=== PATIENT | female | born 1995 | race Caucasian/White ===

== ENCOUNTER 2018-10-12 12:20 | Emergency (ER) | payer OTHER, MEDICAID ==
[~2018-10-12] VITALS: Ht 154.9 cm; Wt 62.1 kg
[~2018-10-12 12:20] MED LIST: FOLIC ACID0.8 MG PO; HYDROCODONE-AP1 EAC6 PO; NAPROSYN500 MG PO; PRENATAL MULTI1 EAC3
[2018-10-12] MEDS ORDERED: HYDROXYZINE HCL25 M2 PO (12:31)
[2018-10-12] MEDS ORDERED: ZOFRAN ODT4 MG DISSOLVE (14:23)
[2018-10-12 14:39] VITALS: BP 133/78
== END 2018-10-12 14:39 | disposition home or self-care (01) ==
LOC: M.ERS 12:20
DX: R11.2 Nausea with vomiting, unspecified (principal); Z91.040 Latex allergy status; Z88.0 Allergy status to penicillin

== ENCOUNTER 2019-01-12 20:12 | Emergency (ER) | payer OTHER ==
[~2019-01-12] VITALS: Ht 152.4 cm; Wt 64.0 kg
[~2019-01-12 20:12] MED LIST changes: +HYDROXYZINE HCL25 M2 PO; +ZOFRAN ODT4 MG DISSOLVE
[2019-01-12 20:36] LABS: URINE BILIRUBIN NEGATIVE (Negative); URINE BLOOD TRACE (Negative); URINE CLARITY CLEAR; URINE COLOR YELLOW; URINE GLUCOSE-RANDOM NEGATIVE (Negative); URINE KETONES 2+ (Negative); URINE LEUKOCYTES-REFLEX TRACE (Negative); URINE NITRITE-REFLEX NEGATIVE (Negative); URINE PROTEIN NEGATIVE (Negative); URINE SPECIFIC GRAVITY 1.015 (1.005-1.030); URINE UROBILINOGEN 0.2 E.U./dl (0.2-1.0)
[2019-01-12 20:38] LABS: HEMOGLOBIN 13.5 gm/dL (12.0-15.0); MCH 29.6 pg (26.0-34.0); MCHC 34.7 g/dL (28.0-37.0); MCV 85.4 fL (80.0-100.0); MPV 9.2 fl. (7.2-11.1); NUCLEATED RBCS 0 /100WBC; PLATELET COUNT* 258 thou/uL (150-400); RBC 4.56 mil/uL (4.20-5.00); RDW-CV 13.2 % (10.5-14.5); WBC 13.1 thou/uL (4.0-11.0)
[2019-01-12 20:46] LABS: CALCIUM 9.6 mg/dL (8.5-10.1); POTASSIUM 3.7 mmol/L (3.5-5.1)
[2019-01-12 20:47] LABS: CASTS None Seen /LPF (None Seen); SQUAMOUS >10 Many /LPF (0-3); URINE RBC 0-2 Rare /HPF (0-2)
[2019-01-12 20:48] LABS: BACTERIA-REFLEX >30 Many /HPF (None Seen); CRYSTALS None Seen /LPF (None Seen)
[2019-01-12 20:51] LABS: ALBUMIN 4.7 g/dL (3.4-5.0); TOTAL BILIRUBIN 0.7 mg/dL (<0.1-1.0); TOTAL PROTEIN 8.3 g/dL (6.4-8.2)
[2019-01-12] MEDS ORDERED: ONDANSETRON HCL4 M2 PO (21:28)
[2019-01-12] MEDS ORDERED: KEFLEX500 M1 PO (21:28)
[2019-01-12 21:40] VITALS: BP 99/36
[2019-01-12 21:59] LABS: ABSOLUTE LYMPHOCYTES 1.4 thou/uL (0.8-5.3); ABSOLUTE MONOCYTES 0.1 thou/uL (0.0-1.2); ABSOLUTE NEUTROPHILS 11.5 thou/uL (1.6-8.1)
[2019-01-12 22:00] LABS: PLATELET ESTIMATE ADEQUATE
== END 2019-01-12 21:40 | disposition home or self-care (01) ==
LOC: M.ERS 20:12
PROVIDERS: Nurse Practitioner Family
DX: K52.9 Noninfective gastroenteritis and colitis, unspecified (principal); N39.0 Urinary tract infection, site not specified; Z88.0 Allergy status to penicillin; Z91.040 Latex allergy status

== ENCOUNTER 2019-01-18 15:19 | Emergency (ER) | payer OTHER ==
[~2019-01-18] VITALS: Ht 152.4 cm; Wt 67.1 kg
[~2019-01-18 15:19] MED LIST changes: +KEFLEX500 M1 PO; +ONDANSETRON HCL4 M2 PO
[2019-01-18 16:03] LABS: ABSOLUTE EOSINOPHILS 0.1 thou/uL (0.0-0.7); ABSOLUTE LYMPHOCYTES 1.6 thou/uL (0.8-5.3); ABSOLUTE MONOCYTES 0.9 thou/uL (0.0-1.2); ABSOLUTE NEUTROPHILS 8.5 thou/uL (1.6-8.1); BASOPHILS 0.4 %; EOSINOPHILS 0.6 %; HEMATOCRIT 37.4 % (37.0-47.0); HEMOGLOBIN 12.7 gm/dL (12.0-15.0); MCH 29.3 pg (26.0-34.0); MCV 86.4 fL (80.0-100.0); MONOCYTES 8.5 %; MPV 9.3 fl. (7.2-11.1); NUCLEATED RBCS 0 /100WBC; PLATELET COUNT* 237 thou/uL (150-400); POLYS 76.5 %; RBC 4.34 mil/uL (4.20-5.00); RDW-CV 13.3 % (10.5-14.5); WBC 11.1 thou/uL (4.0-11.0)
[2019-01-18 16:15] LABS: CALCIUM 8.7 mg/dL (8.5-10.1); CREATININE 0.8 mg/dL (0.6-1.3); POTASSIUM 3.1 mmol/L (3.5-5.1)
[2019-01-18 16:19] LABS: ALBUMIN 3.9 g/dL (3.4-5.0); TOTAL BILIRUBIN 0.5 mg/dL (<0.1-1.0); TOTAL PROTEIN 7.2 g/dL (6.4-8.2)
[2019-01-18] MEDS ORDERED: ZANTAC 150MG T150 M1 PO (17:30)
[2019-01-18] MEDS ORDERED: BENTYL 10 MG CA10 MG PO (17:30)
[2019-01-18] MEDS ORDERED: ZOFRAN ODT4 MG PO (17:30)
[2019-01-18] MEDS ORDERED: KLOR-CON 10 ER10 MEQ PO (17:32)
[2019-01-18 17:55] LABS: URINE BILIRUBIN NEGATIVE (Negative); URINE BLOOD NEGATIVE (Negative); URINE CLARITY SL CLOUDY; URINE COLOR YELLOW; URINE GLUCOSE-RANDOM NEGATIVE (Negative); URINE KETONES 1+ (Negative); URINE LEUKOCYTES-REFLEX TRACE (Negative); URINE NITRITE-REFLEX NEGATIVE (Negative); URINE PROTEIN NEGATIVE (Negative); URINE SPECIFIC GRAVITY <= 1.005 (1.005-1.030); URINE UROBILINOGEN 0.2 E.U./dl (0.2-1.0)
[2019-01-18 18:04] LABS: CASTS None Seen /LPF (None Seen); SQUAMOUS >10 Many /LPF (0-3)
[2019-01-18 18:05] LABS: BACTERIA-REFLEX >30 Many /HPF (None Seen); CRYSTALS None Seen /LPF (None Seen); URINE RBC 0-2 Rare /HPF (0-2)
[2019-01-18 18:20] VITALS: BP 148/85
== END 2019-01-18 18:21 | disposition home or self-care (01) ==
LOC: M.ERS 15:19
PROVIDERS: Physician Assistant
DX: R10.33 Periumbilical pain (principal); E87.6 Hypokalemia; R11.2 Nausea with vomiting, unspecified; R07.9 Chest pain, unspecified; K59.00 Constipation, unspecified; Z88.0 Allergy status to penicillin; Z91.040 Latex allergy status